=== PATIENT | female | born 1965 | race Caucasian/White ===

== ENCOUNTER 2024-05-07 13:34 | Outpatient (CLI) | payer BC ==
[2024-05-07] MEDS ORDERED: Sincalide 5 MCG VIAL ONE (15:09)
[2024-05-07] MEDS ORDERED: Sterile Water 10 ML ONE (15:09)
[2024-05-07] MEDS ORDERED: Bacteriostatic Normal Saline 30 ML VIAL ONE (15:09)
== END 2024-05-07 13:35 | disposition home or self-care (01) ==
LOC: NM 13:34
PROVIDERS: ATTEND Internal Medicine Gastroenterology
DX: R10.11 Right upper quadrant pain (principal)
CPT/HCPCS: 78227; A9537; J2805